=== PATIENT | female | born 2005 | race Two or more races ===

== ENCOUNTER 2024-02-11 19:02 | Emergency (ER) | payer BC ==
[~2024-02-11] VITALS: Ht 170.2 cm; Wt 56.7 kg
[2024-02-11 19:04] VITALS: BP 114/63; TEMP 98.9; O2SAT 100
[2024-02-11 19:07] VITALS: PULSE 110; O2SAT 98
== END 2024-02-11 22:12 | disposition left against medical advice (07) ==
LOC: ER 19:02
DX: J02.9 Acute pharyngitis, unspecified (principal); Z53.21 Procedure and treatment not carried out due to patient leaving prior to being seen by health care provider